=== PATIENT | male | born 1935 | race Caucasian/White ===

== ENCOUNTER 2020-01-04 07:22 | Outpatient (CLI) | payer MEDICARE, OTHER ==
--- NOTE | 2020-01-04 09:28 | CT ---
Exam: PRE AND POSTCONTRAST SOFT TISSUE NECK CT: HISTORY: Parathyroid protocol. Hypercalcemia. Patient has had a previous parathyroidectomy. COMPARISON: None. CORRELATION: Parathyroid scan 03/16/2007. TECHNIQUE: Pre and postcontrast soft tissue neck CT is performed in the axial plane. Reformatted imag es are submitted for interpretation. FINDINGS: Visualized brain parenchyma is unremarkable. Adequate aeration of the sinuses and mastoid air cells. Aerodigestive tract is patent. No obvious mucosal abnormality. Midline fatty raphae of the tongue is preserved. Epiglottis has a normal caliber. Preepiglottic fat is preserved. Symmetric attenuation of the parotid and submandibular glands. Symmetric attenuation of the paraspinal muscles. No evidence of lymphadenopathy by size criteria. Cervical spine vertebral body height is maintained. There is no fracture. 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 There are varying degrees of central canal stenosis and foraminal narrowing, on the basis of degenerative change. Technique limits evaluation. Upper mediastinum is unremarkable. There are presumed chronic changes in the visualized lung apices. Thyroid gland is unremarkable. No CT evidence of a viable candidate for a parathyroid adenoma. IMPRESSION: No CT evidence of a parathyroid adenoma. Consider nuclear medicine imaging for further attenuation. Transcribed Date/Time: 01/04/2020 10:02 AM
[2020-01-04] MEDS ORDERED: Iopamidol 370 76% 100 ML VIAL ONE (11:00)
== END 2020-01-04 07:23 | disposition home or self-care (01) ==
LOC: CT 07:22
PROVIDERS: ATTEND Otolaryngology Plastic Surgery within the Head & Neck
DX: E21.0 Primary hyperparathyroidism (principal)
CPT/HCPCS: 70492; 82565; Q9967

== ENCOUNTER 2021-03-04 14:03 | Outpatient (CLI) | payer MEDICARE, OTHER | END 2021-03-04 14:04 | disposition home or self-care (01) | LOC: BICRAD 14:03 | PROVIDERS: ATTEND Internal Medicine Cardiovascular Disease | DX: R06.02 Shortness of breath (principal) | CPT/HCPCS: 71046 ==

== ENCOUNTER 2022-05-26 09:56 | Inpatient (IN) | payer MEDICARE, OTHER ==
[2022-05-26 10:42] LABS: #Eosinphils 0.2 thou/uL (0.0-0.7); #Lymphocytes 1.4 thou/uL (1.20-3.40); #Monocytes 0.6 thou/uL (0.11-0.59); #Neutrophils 5.8 thou/uL (1.40-6.50); %Basophils 0.2 % (0.0-1.0); %Eosinophils 2.6 % (0.0-10.0); %Lymphocytes 16.8 % (21.0-51.0); %Monocytes 7.9 % (0.0-10.0); %Neutrophils 72.5 % (42.0-75.0); Hemoglobin 14.4 g/dL (14.0-18.0); Mean Corpuscular HGB CONC 33.2 g/dL (32.0-36.0); Mean Corpuscular Hemoglobin 31.6 pg (27.0-31.0); Mean Corpuscular Volume 95.3 fL (78.0-98.0); Mean Platelet Volume 7.1 fL (7.4-10.4); Platelet Count 201 thou/uL (130-400); RBC Distribution Width 11.8 % (11.5-14.5); Red Blood Cell (RBC) Count 4.55 mill/uL (4.70-6.10)
[2022-05-26] MEDS ORDERED: Acetaminophen 500 MG TAB ONE (10:51)
[2022-05-26] MEDS ORDERED: Ketorolac Tromethamine 30 MG/ML VIAL ONE (10:51)
[2022-05-26 11:08] LABS: ALT (SGPT) 18 U/L (8-55); AST (SGOT) 19 U/L (5-34); Albumin 3.8 g/dL (3.4-4.8); Alkaline Phosphatase 86 U/L (40-110); Anion Gap 14 mmol/L (10-20); BUN (Urea Nitrogen) 15 mg/dL (8.4-25.7); Calc. Creatinine Clearance 0 mL/min (70-130); Carbon Dioxide 25 mmol/L (23-31); Chloride 98 mmol/L (98-107); Estimated GFR 82; Globulin 2.6 g/dL (2.4-3.5); Glucose 102 mg/dL (83-110); Protein, Total 6.4 g/dL (5.8-8.1); Sodium 133 mmol/L (136-145)
[2022-05-26] MEDS ORDERED: Acetaminophen 325 MG TAB PO PRN (15:11)
[2022-05-26] MEDS ORDERED: Ondansetron ODT 4 MG TAB PO PRN (15:11)
[2022-05-26] MEDS ORDERED: Ketorolac Tromethamine 30 MG/ML VIAL IVP PRN (15:24)
[2022-05-26] MEDS ORDERED: hydrALAZINE 20 MG/ML VIAL SLOW IVP PRN (15:57)
[2022-05-26] MEDS ORDERED: prednisoLONE 10 MG ODT TAB PO SCH (16:00)
[2022-05-26] MEDS ORDERED: predniSONE 20 MG TAB ONE (16:20)
[2022-05-27 00:39] VITALS: BMI 36.6
[2022-05-27 06:09] LABS: #Basophils 0.1 thou/uL (0.0-0.2); #Lymphocytes 0.9 thou/uL (1.20-3.40); #Monocytes 0.4 thou/uL (0.11-0.59); #Neutrophils 7.4 thou/uL (1.40-6.50); %Basophils 0.6 % (0.0-1.0); %Eosinophils 0.3 % (0.0-10.0); %Lymphocytes 10.5 % (21.0-51.0); %Monocytes 4.8 % (0.0-10.0); %Neutrophils 83.8 % (42.0-75.0); Hemoglobin 14.1 g/dL (14.0-18.0); Mean Corpuscular Hemoglobin 31.4 pg (27.0-31.0); Mean Corpuscular Volume 95.2 fL (78.0-98.0); Mean Platelet Volume 7.7 fL (7.4-10.4); Platelet Count 214 thou/uL (130-400); RBC Distribution Width 11.9 % (11.5-14.5); Red Blood Cell (RBC) Count 4.48 mill/uL (4.70-6.10); White Blood Cell (WBC) Count 8.9 thou/uL (4.8-10.8)
[2022-05-27 06:20] LABS: Anion Gap 17 mmol/L (10-20); BUN (Urea Nitrogen) 22 mg/dL (8.4-25.7); Calc. Creatinine Clearance 108 mL/min (70-130); Calcium 8.9 mg/dL (7.8-10.44); Carbon Dioxide 19 mmol/L (23-31); Chloride 101 mmol/L (98-107); Estimated GFR 81; Glucose 144 mg/dL (83-110); Potassium 4.4 mmol/L (3.5-5.1); Sodium 133 mmol/L (136-145)
[2022-05-27] MEDS: Amlodipine 10 MG TAB PO SCH (08:36)
[2022-05-27] MEDS: Losartan 25 MG TAB PO SCH (08:37)
[2022-05-27] MEDS: prednisoLONE 10 MG ODT TAB PO SCH (08:37)
[2022-05-27] MEDS ORDERED: Atorvastatin Calcium 20 MG TAB PO SCH (09:00)
[2022-05-27] MEDS ORDERED: Finasteride 5 MG TAB PO SCH (09:00)
[2022-05-27] MEDS ORDERED: Doxazosin Mesylate 4 MG TAB PO SCH (09:00)
[2022-05-27] MEDS: Sodium Chloride 0.9% 1,000 ML IV SCH ×2 (12:12→22:20)
[2022-05-27] MEDS: Atorvastatin Calcium 20 MG TAB PO SCH (16:56)
[2022-05-27] MEDS: Finasteride 5 MG TAB PO SCH (16:57)
[2022-05-27] MEDS: Doxazosin Mesylate 4 MG TAB PO SCH (16:57)
[2022-05-28] MEDS: Sodium Chloride 0.9% 1,000 ML IV SCH (02:42)
[2022-05-28 05:40] LABS: Anion Gap 15 mmol/L (10-20); BUN (Urea Nitrogen) 21 mg/dL (8.4-25.7); CK (CPK) 99 U/L (30-200); Calc. Creatinine Clearance 116 mL/min (70-130); Calcium 8.5 mg/dL (7.8-10.44); Carbon Dioxide 18 mmol/L (23-31); Chloride 104 mmol/L (98-107); Estimated GFR 84; Glucose 105 mg/dL (83-110); Magnesium 1.9 mg/dL (1.6-2.6); Potassium 4.4 mmol/L (3.5-5.1); Sodium 133 mmol/L (136-145)
[2022-05-28] MEDS: Amlodipine 10 MG TAB PO SCH (09:32)
[2022-05-28] MEDS: Aspirin 81 mg Enteric Coated Tablet PO SCH (09:33)
[2022-05-28] MEDS: Fish Oil 1,000 MG CAP PO SCH (09:33)
[2022-05-28] MEDS: prednisoLONE 10 MG ODT TAB PO SCH (09:33)
[2022-05-28] MEDS: Losartan 25 MG TAB PO SCH (09:33)
[2022-05-28] MEDS: Finasteride 5 MG TAB PO SCH (19:09)
[2022-05-28] MEDS: Atorvastatin Calcium 20 MG TAB PO SCH (19:09)
[2022-05-28] MEDS: Doxazosin Mesylate 4 MG TAB PO SCH (19:09)
[2022-05-29] MEDS: Losartan 25 MG TAB PO SCH (10:04)
[2022-05-29] MEDS: Fish Oil 1,000 MG CAP PO SCH (10:04)
[2022-05-29] MEDS: Aspirin 81 mg Enteric Coated Tablet PO SCH (10:05)
[2022-05-29] MEDS: Amlodipine 10 MG TAB PO SCH (10:05)
[2022-05-29] MEDS: prednisoLONE 10 MG ODT TAB PO SCH (14:37)
[2022-05-29] MEDS: Finasteride 5 MG TAB PO SCH (18:13)
[2022-05-29] MEDS: Doxazosin Mesylate 4 MG TAB PO SCH (18:13)
[2022-05-29] MEDS: Atorvastatin Calcium 20 MG TAB PO SCH (18:14)
[2022-05-30] MEDS: Losartan 25 MG TAB PO SCH (09:35)
[2022-05-30] MEDS: Amlodipine 10 MG TAB PO SCH (09:35)
[2022-05-30] MEDS: Fish Oil 1,000 MG CAP PO SCH (09:35)
[2022-05-30] MEDS: Aspirin 81 mg Enteric Coated Tablet PO SCH (09:35)
[2022-05-30] MEDS: prednisoLONE 10 MG ODT TAB PO SCH (09:40)
[2022-05-30] MEDS: Finasteride 5 MG TAB PO SCH (17:06)
[2022-05-30] MEDS: Atorvastatin Calcium 20 MG TAB PO SCH (17:06)
[2022-05-30] MEDS: Doxazosin Mesylate 4 MG TAB PO SCH (17:06)
[2022-05-30] MEDS: Cyclobenzaprine 10 MG TAB PO PRN (21:21)
[2022-05-31] MEDS: Aspirin 81 mg Enteric Coated Tablet PO SCH (08:30)
[2022-05-31] MEDS: Losartan 25 MG TAB PO SCH (08:30)
[2022-05-31] MEDS: Amlodipine 10 MG TAB PO SCH (08:31)
[2022-05-31] MEDS: Fish Oil 1,000 MG CAP PO SCH (08:33)
[2022-05-31] MEDS: Cyclobenzaprine 10 MG TAB PO PRN (11:29)
[2022-05-31 11:50] VITALS: BP 154/80; TEMP 97.6
== END 2022-05-31 16:45 | disposition home health service (06) | DRG 552 ==
LOC: ERS 09:56 → ERHOLD 14:26 → MSONC 18:14 → SJJU 20:12 → OBSVTOIN 05-28 15:31
PROVIDERS: ADMIT Internal Medicine; ATTEND Internal Medicine
DX: M48.061 Spinal stenosis, lumbar region without neurogenic claudication (principal); Z20.822 Contact with and (suspected) exposure to COVID-19; M19.90 Unspecified osteoarthritis, unspecified site; N40.0 Benign prostatic hyperplasia without lower urinary tract symptoms; I10 Essential (primary) hypertension; E78.5 Hyperlipidemia, unspecified; Z88.2 Allergy status to sulfonamides; Z91.041 Radiographic dye allergy status; Z79.899 Other long term (current) drug therapy; Z98.890 Other specified postprocedural states
CPT/HCPCS: 36415; 70450; 72148; 80048; 80053; 82550; 83735; 85025; 85379; 96372; G0378; J1885; J7050; J7510; J7512; U0003; U0005